=== PATIENT | female | born 1995 | race Caucasian/White ===

== ENCOUNTER 2022-06-14 16:15 | Emergency (ER) | payer OTHER ==
[~2022-06-14] VITALS: Ht 170.2 cm; Wt 79.0 kg
[2022-06-14 17:10] VITALS: BP 123/73
[2022-06-14] MEDS ORDERED: AZIT500T66 PO ×3 (17:39→18:04)
[2022-06-14] MEDS ORDERED: LIDO2SOL23 MT ×3 (17:39→18:04)
== END 2022-06-14 18:07 | disposition home or self-care (01) ==
LOC: ER 16:15
DX: J03.90 Acute tonsillitis, unspecified (principal)